=== PATIENT | female | born 1965 | race Caucasian/White ===

== ENCOUNTER 2021-04-11 17:34 | Emergency (ER) | payer BC ==
[~2021-04-11] VITALS: Ht 157.5 cm; Wt 61.2 kg
[2021-04-11] MEDS ORDERED: ONDANSETRON ODT4 MG PO (18:52)
[2021-04-11] MEDS ORDERED: FLONASE ALLERG9.9 ML INH (18:52)
[2021-04-11] MEDS ORDERED: ONDANSETRON HCL 4 MG ORAL DISINTEGRATING TAB PO ONE (19:00)
== END 2021-04-11 19:15 | disposition home or self-care (01) ==
LOC: ER 17:40
DX: U07.1 COVID-19 (principal); Z88.1 Allergy status to other antibiotic agents; Z88.0 Allergy status to penicillin
CPT/HCPCS: 99283; Q0162